=== PATIENT | female | born 1965 | race African-American/Black ===

== ENCOUNTER 2017-02-08 20:10 | Emergency (ER) | payer SELFPAY ==
[2017-02-08] MEDS ORDERED: Ketorolac Tromethamine 60 MG/2 ML VIAL ONE (20:35)
[2017-02-08] MEDS ORDERED: traMADol HCl 50 MG TAB ONE (20:35)
== END 2017-02-08 20:55 | disposition home or self-care (01) ==
LOC: MADERS 20:10
DX: M54.16 Radiculopathy, lumbar region (principal); K04.7 Periapical abscess without sinus; E11.9 Type 2 diabetes mellitus without complications; E03.9 Hypothyroidism, unspecified; I10 Essential (primary) hypertension
CPT/HCPCS: 96372; J1885

== ENCOUNTER 2018-01-20 07:29 | Emergency (ER) | payer BC, SELFPAY ==
[2018-01-20] MEDS ORDERED: Piperacillin/Tazobactam 3.375 GM VIAL ONE (08:58)
[2018-01-20] MEDS ORDERED: Sodium Chloride 0.9% 100 ML BAG ONE (09:00)
[2018-01-20] MEDS ORDERED: Sodium Chloride 0.9% 1,000 ML BAG ONE (09:00)
--- NOTE | 2018-01-20 09:17 | RAD ---
PA AND LATERAL VIEWS OF THE CHEST: HISTORY: Cough, shortness of breath, decreased breath sounds of the left lung. FINDINGS/IMPRESSION: There is near-complete opacification of the left hemithorax. The right lung is clear. No significan t mediastinal shift is seen. Further evaluation with CT scan would be helpful. POS: [facility]
[2018-01-20 09:46] LABS: #Basophils 0.1 thou/uL (0.0-0.2); #Eosinphils 0.2 thou/uL (0.0-0.7); #Lymphocytes 1.8 thou/uL (1.20-3.40); #Monocytes 0.7 thou/uL (0.11-0.59); #Neutrophils 4.5 thou/uL (1.40-6.50); %Basophils 1.2 % (0.0-1.0); %Eosinophils 2.6 % (0.0-10.0); %Lymphocytes 24.5 % (21.0-51.0); %Monocytes 10.2 % (0.0-10.0); %Neutrophils 61.5 % (42.0-75.0); ALT (SGPT) 12 U/L (8-55); AST (SGOT) 9 U/L (5-34); Albumin 3.5 g/dL (3.5-5.0); Alkaline Phosphatase 109 U/L (40-150); Anion Gap 17 mmol/L (10-20); BUN (Urea Nitrogen) 17 mg/dL (9.8-20.1); Bilirubin, Total 0.6 mg/dL (0.2-1.2); Calc. Creatinine Clearance 0 mL/min (70-130); Calcium 9.1 mg/dL (7.8-10.44); Carbon Dioxide 20 mmol/L (22-29); Chloride 98 mmol/L (98-107); Estimated GFR-MDRD 45; Globulin 3.2 g/dL (2.4-3.5); Hemoglobin 14.4 g/dL (12.0-16.0); Mean Corpuscular HGB CONC 32.4 g/dL (32.0-36.0); Mean Corpuscular Hemoglobin 27.5 pg (27.0-31.0); Mean Corpuscular Volume 84.7 fL (78.0-98.0); Mean Platelet Volume 6.4 fL (7.4-10.4); Platelet Count 399 thou/uL (130-400); Potassium 3.9 mmol/L (3.5-5.1); Protein, Total 6.7 g/dL (6.0-8.3); RBC Distribution Width 12.8 % (11.5-14.5); Red Blood Cell (RBC) Count 5.23 mill/uL (4.20-5.40); Sodium 131 mmol/L (136-145); White Blood Cell (WBC) Count 7.2 thou/uL (4.8-10.8)
[2018-01-20 10:08] LABS: Glucose 595 mg/dL (70-105)
[2018-01-20 10:25] LABS: Bilirubin Negative (Negative); Blood, Urine Negative (Negative); Clarity Clear (Clear); Glucose, Urine (Dipstick) >=1000 mg/dL (Negative); Leukocyte Negative (Negative); Nitrite Negative (Negative); Protein, Urine (Dipstick) Negative (Neg-Trace); Specific Gravity, Urine 1.015 (1.005-1.030); Urobilinogen 0.2 mg/dL (0.2-1.0)
[2018-01-20] MEDS ORDERED: Insulin Regular 300 UNITS/3 ML VIAL ONE (10:50)
--- NOTE | 2018-01-20 11:41 | CT ---
NONCONTRAST ENHANCED CT CHEST: HISTORY: Left hemithorax opacification. FINDINGS: Noncontrast-enhanced CT of the chest performed. Images demonstrate a large left-sided pleural effusion. Extensive consolidation is seen in the left upper and lower lobes. No evidence of mediastinal mass is seen. There may be some mild paratracheal lymphadenopathy. Witho ut IV contrast, left hilar lymphadenopathy cannot be excluded. There do appear to be some mildly enl arged aortopulmonary window lymph nodes. The right lung is well aerated. IMPRESSION: 1. Large left-sided pleural effusion. 2. Consolidated extensive opacification of the left lung. 3. Mediastinum is difficult to evaluate as IV contrast was not given making it difficult to evaluate for lymphadenopathy or mediastinal masses. POS: [facility]
== END 2018-01-20 11:45 | disposition short-term general hospital (02) ==
LOC: MADERS 07:29
DX: J18.9 Pneumonia, unspecified organism (principal); J90 Pleural effusion, not elsewhere classified; E11.9 Type 2 diabetes mellitus without complications; E03.9 Hypothyroidism, unspecified; I10 Essential (primary) hypertension; Z79.899 Other long term (current) drug therapy
CPT/HCPCS: 36416; 71046; 71250; 80053; 81003; 83605; 85025; 87040; 87804; 96361; 96374; 96375; J1815; J2543; J7050; J7620